=== PATIENT | female | born 2000 | race African-American/Black ===

== ENCOUNTER 2024-08-24 11:18 | Emergency (ER) | payer SELFPAY ==
[~2024-08-24] VITALS: Ht 160 cm; Wt 81.6 kg
[2024-08-24 11:34] VITALS: O2SAT 100
[2024-08-24 12:38] LABS: CLARITY URINE CLEAR (CLEAR); COLOR URINE YELLOW (YELLOW); GLUCOSE URINE NEGATIVE (NEGATIVE); KETONES URINE NEGATIVE (NEGATIVE); LEUKOCYTE ESTERASE URINE 1+ (NEGATIVE); NITRITE URINE NEGATIVE (NEGATIVE); OCCULT BLOOD URINE NEGATIVE (NEGATIVE); PH URINE 7.5 (4.5-8.0); PROTEIN URINE NEGATIVE (NEGATIVE); SPECIFIC GRAVITY URINE 1.024 (1.005-1.030)
[2024-08-24 13:20] LABS: SQUAMOUS EPITHELIAL CELL URINE 3+ /lpf (RARE/1+)
[2024-08-24 13:21] LABS: BACTERIA URINE 2+
[2024-08-24 13:22] LABS: RBC URINE NONE SEEN /hpf (0-2)
[2024-08-24] MEDS ORDERED: NITR100C MT (14:10)
[2024-08-24 14:14] VITALS: BP 126/88; PULSE 77; RESP 18; TEMP 37.1; O2SAT 100
== END 2024-08-24 14:16 | disposition home or self-care (01) ==
LOC: ER 11:18
DX: N39.0 Urinary tract infection, site not specified (principal)
CPT/HCPCS: 81003; 81025; 99283

== ENCOUNTER 2024-09-30 22:27 | Emergency (ER) | payer SELFPAY ==
[~2024-09-30] VITALS: Ht 160 cm; Wt 81.6 kg
[~2024-09-30 22:27] MED LIST: NITR100C MT
[2024-09-30 22:43] VITALS: O2SAT 100
[2024-09-30 22:45] VITALS: BP 133/87; PULSE 100; RESP 14; TEMP 36.8; O2SAT 100
[2024-09-30 23:24] VITALS: TEMP 98.2
[2024-09-30] MEDS: ACETAMINOPHEN 500MG TABLET PO ONE (23:24)
[2024-10-01] MEDS ORDERED: IBUP-2029 MT (00:39)
== END 2024-10-01 00:55 | disposition home or self-care (01) ==
LOC: ER 22:27
DX: S00.83XA Contusion of other part of head, initial encounter (principal); S09.90XA Unspecified injury of head, initial encounter; Y08.89XA Assault by other specified means, initial encounter; Y93.89 Activity, other specified; Y92.89 Other specified places as the place of occurrence of the external cause; Y99.8 Other external cause status
CPT/HCPCS: 70486; 73030; 81025; 99284; A4565